=== PATIENT | female | born 1970 | race Caucasian/White ===

== ENCOUNTER → 2020-11-26 | Day surgery (SDC) | payer BC, OTHER ==
[~2020-11-26] MED LIST: MOBIC7.5 MG PO
== END | disposition home or self-care (01) ==
LOC: OR 07:01
DX: Z12.11 Encounter for screening for malignant neoplasm of colon (principal); K64.0 First degree hemorrhoids; R13.10 Dysphagia, unspecified; K22.8 Other specified diseases of esophagus; E66.01 Morbid (severe) obesity due to excess calories; Z68.41 Body mass index [BMI] 40.0-44.9, adult; Z88.0 Allergy status to penicillin; Z88.5 Allergy status to narcotic agent; Z79.899 Other long term (current) drug therapy
CPT/HCPCS: J2704; J7040

== ENCOUNTER → 2020-12-31 | Outpatient (CLI) | payer BC, OTHER | LOC: LAB 12:23 | PROVIDERS: Internal Medicine | DX: R70.0 Elevated erythrocyte sedimentation rate (principal); M25.60 Stiffness of unspecified joint, not elsewhere classified; M79.10 Myalgia, unspecified site; D89.89 Other specified disorders involving the immune mechanism, not elsewhere classified; R76.8 Other specified abnormal immunological findings in serum; M25.50 Pain in unspecified joint | CPT/HCPCS: 36415; 82085; 82550; 83520; 84439; 84443; 85652; 86140; 86200 ==

== ENCOUNTER → 2021-04-10 | Outpatient (CLI) | payer BC, OTHER ==
[2021-04-10 17:19] LABS: HEMOGLOBIN 11.3 gm/dl (12.3-15.3); RED BLOOD COUNT 3.73 M/UL (4.00-5.10); WHITE BLOOD COUNT 7.2 K/UL (4.5-11.0)
[2021-04-10 17:37] LABS: BUN/CREATININE RATIO 31 (0-10)
== END ==
LOC: LAB 16:46
PROVIDERS: Nurse Practitioner Family
DX: Z51.81 Encounter for therapeutic drug level monitoring (principal); Z79.899 Other long term (current) drug therapy
CPT/HCPCS: 36415; 80053; 85025

== ENCOUNTER 2022-02-09 10:04 | Observation (INO) | payer BC ==
[~2022-02-09] VITALS: Ht 157.5 cm; Wt 106.6 kg
[2022-02-09 11:06] LABS: HEMOGLOBIN 13.9 gm/dl (12.3-15.3); RED BLOOD COUNT 4.5 M/UL (4.00-5.10); WHITE BLOOD COUNT 8.2 K/UL (4.5-11.0)
[2022-02-09 11:35] LABS: BUN/CREATININE RATIO 24 (0-10)
[2022-02-09] MEDS ORDERED: FOLIC ACID1 MG PO (15:16)
[2022-02-09] MEDS ORDERED: ENBREL50 MG/1 M1 SQ (15:18)
[2022-02-10 06:36] LABS: HEMOGLOBIN 12.5 gm/dl (12.3-15.3); RED BLOOD COUNT 4.16 M/UL (4.00-5.10); WHITE BLOOD COUNT 7.4 K/UL (4.5-11.0)
[2022-02-10 07:02] LABS: BUN/CREATININE RATIO 28 (0-10)
[2022-02-10] MEDS ORDERED: BIOTIN1 MG PO (12:38)
[2022-02-10] MEDS ORDERED: FAMOTIDINE40 MG PO (12:39)
[2022-02-10] MEDS ORDERED: VITAMIN D350 MC3 PO (12:39)
[2022-02-10] MEDS ORDERED: COLLAGEN SUPPLEMENT PO (12:41)
[2022-02-10] MEDS ORDERED: PROTONIX 40 MG40 M1 PO (13:20)
[2022-02-10] MEDS ORDERED: MAALOX PLUS 3030 ML PO (13:20)
[2022-02-10] MEDS ORDERED: ATORVASTATIN CA20 MG PO (13:32)
== END 2022-02-10 14:43 | disposition home or self-care (01) ==
LOC: ER1 10:04 → CDU 14:14 → MED SURG 4 19:06
PROVIDERS: Emergency Medicine; Physician Assistant Medical; ADMIT Internal Medicine
DX: R07.89 Other chest pain (principal); M06.9 Rheumatoid arthritis, unspecified; M19.90 Unspecified osteoarthritis, unspecified site; Z20.822 Contact with and (suspected) exposure to COVID-19
CPT/HCPCS: ECHO; 36415; 71045; 80048; 80061; 82550; 82553; 83036; 83735; 84484; 85025; 85027; 93005; 93306; 99285; G0378; U0002